=== PATIENT | male | born 1950 | race African-American/Black ===

== ENCOUNTER 2025-03-06 01:21 | Inpatient (IN) | payer OTHER ==
[~2025-03-06] VITALS: Ht 172.7 cm; Wt 77.6 kg
[2025-03-06 01:32] VITALS: O2SAT 98
[2025-03-06 03:27] LABS: BASOPHILS % 1.4 % (0.0-2.0); EOSINOPHILS % 1.3 % (0.0-5.0); HEMATOCRIT. 37.0 % (42.0-52.0); HEMOGLOBIN. 12.1 g/dL (14.0-18.0); LYMPHOCYTES % 26.1 % (20.0-50.0); MEAN PLATELET VOLUME 7.7 fl (7.4-10.4); MONOCYTES % 12.8 % (2.0-8.0); NEUTROPHILS % 58.4 % (40.0-76.0); PLATELET 249 x1000/uL (130-400); RED BLOOD CELL COUNT 3.94 mill/uL (4.7-6.1); RED CELL DISTRIBUTION WIDTH 14.5 % (11.6-14.6)
[2025-03-06 03:41] LABS: CREATININE 1.4 mg/dL (0.6-1.3); UREA NITROGEN BLOOD 28 mg/dL (9-23)
[2025-03-06] MEDS: QUETIAPINE FUMARATE 25MG TABLET PO SCH (04:14)
[2025-03-06 04:37] LABS: CLARITY URINE CLOUDY (CLEAR); COLOR URINE YELLOW (YELLOW); GLUCOSE URINE NEGATIVE (NEGATIVE); KETONES URINE NEGATIVE (NEGATIVE); LEUKOCYTE ESTERASE URINE 2+ (NEGATIVE); NITRITE URINE NEGATIVE (NEGATIVE); OCCULT BLOOD URINE 1+ (NEGATIVE); PH URINE 5.5 (4.5-8.0); PROTEIN URINE 2+ (NEGATIVE); SPECIFIC GRAVITY URINE 1.019 (1.005-1.030); UROBILINOGEN URINE 1.0 E.U./dL (0.2-1.0)
[2025-03-06 05:18] LABS: RBC URINE 0-2 /hpf (0-2); SQUAMOUS EPITHELIAL CELL URINE FEW /lpf (RARE/1+); WBC URINE 25-50 /hpf (0-2)
[2025-03-06 05:19] LABS: BACTERIA URINE TRACE
[2025-03-06] MEDS ORDERED: ACETAMINOPHEN 325MG TABLET PO PRN ×2 (06:15)
[2025-03-06] MEDS ORDERED: IPRATROPIUM/ALBUTEROL 0.5-3(2.5)MG/3ML NEB HHN PRN (06:15)
[2025-03-06] MEDS ORDERED: ONDANSETRON HCL 4MG/2ML INJ IV PRN (06:15)
[2025-03-06] MEDS ORDERED: CLONIDINE 0.1MG TABLET PO PRN (06:15)
[2025-03-06] MEDS ORDERED: CEFTRIAXONE 1GM/50ML 50 ML IV SCH (06:15)
[2025-03-06] MEDS ORDERED: GUAIFENESIN 200MG/10ML SUGAR FREE UDC PO PRN (06:15)
[2025-03-06] MEDS ORDERED: SODIUM CHLORIDE 0.9% 1,000 ML IV ONE (06:30)
[2025-03-06 12:00] VITALS: BP 133/70; PULSE 91; RESP 18; TEMP 36.3; O2SAT 97
[2025-03-06 15:13] VITALS: BP 137/85; PULSE 67; RESP 12; TEMP 36.0288
[2025-03-06 16:00] VITALS: BP 113/56; PULSE 98; RESP 19; TEMP 36.3; O2SAT 97
[2025-03-06 20:00] VITALS: BP 152/56; PULSE 64; RESP 18; TEMP 36.3; O2SAT 97
[2025-03-06] MEDS: FAMOTIDINE 20MG TABLET PO SCH (21:29)
[2025-03-07] MEDS: CEFTRIAXONE 1GM/50ML 50 ML IV SCH (06:14)
[2025-03-07 08:00] VITALS: BP 155/94; PULSE 60; RESP 17; TEMP 36.4; O2SAT 97
[2025-03-07 12:00] VITALS: BP 135/71; PULSE 60; RESP 17; TEMP 36.4; O2SAT 95
[2025-03-07 16:00] VITALS: BP 141/74; PULSE 64; RESP 16; TEMP 36.4; O2SAT 97
[2025-03-07 20:00] VITALS: BP 145/78; PULSE 60; RESP 17; TEMP 36.5; O2SAT 98
[2025-03-08] VITALS: BP 141/78; PULSE 66; RESP 17; TEMP 36.5; O2SAT 99
[2025-03-08 04:00] VITALS: BP 138/75; PULSE 62; RESP 17; TEMP 36.5; O2SAT 99
[2025-03-08 12:00] VITALS: BP 130/73; PULSE 60; RESP 18; TEMP 36.4; O2SAT 96
[2025-03-08 15:28] VITALS: BP 138/71; PULSE 63; RESP 17; TEMP 97.1
[2025-03-08 16:00] VITALS: BP 140/69; PULSE 63; RESP 18; TEMP 36.3; O2SAT 98
== END 2025-03-08 17:00 | disposition home or self-care (01) | DRG 699 ==
LOC: ER 01:21 → EDBEDREQ 04:11 → 6EST 04:40 → EDBEDREQTM 04:41 → EDBEDREQ 04:41 → ENRESERV 06:13
PROVIDERS: ADMIT Internal Medicine; ATTEND Internal Medicine
PROC: 0T2BX0Z Change Drainage Device in Bladder, External Approach (ICD-10-PCS; principal; 2025-03-06)
DX: T83.021A Displacement of indwelling urethral catheter, initial encounter (principal); N17.9 Acute kidney failure, unspecified; N39.0 Urinary tract infection, site not specified; F03.90 Unspecified dementia, unspecified severity, without behavioral disturbance, psychotic disturbance, mood disturbance, and anxiety; D64.9 Anemia, unspecified; Y83.8 Other surgical procedures as the cause of abnormal reaction of the patient, or of later complication, without mention of misadventure at the time of the procedure; Y92.89 Other specified places as the place of occurrence of the external cause; Z86.73 Personal history of transient ischemic attack (TIA), and cerebral infarction without residual deficits
CPT/HCPCS: 36415; 51702; 80048; 81003; 85025; 93970; 99285; A4606; J0696

== ENCOUNTER 2025-04-10 21:04 | Inpatient (IN) | payer OTHER ==
[~2025-04-10] VITALS: Ht 172.7 cm; Wt 73.0 kg
[2025-04-10 21:07] VITALS: O2SAT 94
[2025-04-10 21:55] LABS: BASOPHILS % 1.1 % (0.0-2.0); EOSINOPHILS % 1.4 % (0.0-5.0); HEMATOCRIT. 41.1 % (42.0-52.0); HEMOGLOBIN. 13.4 g/dL (14.0-18.0); LYMPHOCYTES % 22.1 % (20.0-50.0); MEAN PLATELET VOLUME 7.6 fl (7.4-10.4); MONOCYTES % 11.8 % (2.0-8.0); NEUTROPHILS % 63.6 % (40.0-76.0); PLATELET 287 x1000/uL (130-400); RED BLOOD CELL COUNT 4.36 mill/uL (4.7-6.1); RED CELL DISTRIBUTION WIDTH 14.1 % (11.6-14.6)
[2025-04-10 22:08] LABS: CREATININE 1.0 mg/dL (0.6-1.3); UREA NITROGEN BLOOD 28 mg/dL (9-23)
[2025-04-11 00:22] LABS: CLARITY URINE TURBID (CLEAR); COLOR URINE RED (YELLOW); GLUCOSE URINE NEGATIVE (NEGATIVE); KETONES URINE NEGATIVE (NEGATIVE); LEUKOCYTE ESTERASE URINE 2+ (NEGATIVE); NITRITE URINE NEGATIVE (NEGATIVE); OCCULT BLOOD URINE 3+ (NEGATIVE); PH URINE 5.5 (4.5-8.0); PROTEIN URINE 3+ (NEGATIVE); SPECIFIC GRAVITY URINE 1.028 (1.005-1.030); UROBILINOGEN URINE 1.0 E.U./dL (0.2-1.0)
[2025-04-11] MEDS ORDERED: MAGNESIUM/ALUMINUM HYDROXIDE/SIMETHICONE 30ML UDC PO PRN (01:30)
[2025-04-11] MEDS ORDERED: GUAIFENESIN 200MG/10ML SUGAR FREE UDC PO PRN (01:30)
[2025-04-11] MEDS ORDERED: ACETAMINOPHEN 325MG TABLET PO PRN ×2 (01:30)
[2025-04-11] MEDS ORDERED: DOCUSATE SODIUM 100MG CAPSULE PO PRN (01:30)
[2025-04-11] MEDS ORDERED: ONDANSETRON HCL 4MG/2ML INJ IV PRN (01:30)
[2025-04-11] MEDS ORDERED: CLONIDINE 0.1MG TABLET PO PRN (01:30)
[2025-04-11] MEDS ORDERED: IPRATROPIUM/ALBUTEROL 0.5-3(2.5)MG/3ML NEB HHN PRN (01:30)
[2025-04-11 01:58] VITALS: BP 133/75; PULSE 71; RESP 18; TEMP 36.418
[2025-04-11 02:00] LABS: BACTERIA URINE TRACE; RBC URINE 50-100 /hpf (0-2); SQUAMOUS EPITHELIAL CELL URINE FEW /lpf (RARE/1+)
[2025-04-11] MEDS: PIPERACILLIN/TAZO 3.375G/50ML 50 ML IV SCH (02:08)
[2025-04-11] MEDS: SODIUM CHLORIDE 0.9% 1,000 ML IV ONE (02:08)
[2025-04-11 08:00] VITALS: BP 117/64; PULSE 66; RESP 16; TEMP 36.3; O2SAT 97
[2025-04-11] MEDS: CEFTRIAXONE 1GM/50ML 50 ML IV SCH (08:59)
[2025-04-11] MEDS: FAMOTIDINE 20MG/2ML VIAL IV SCH (08:59)
[2025-04-11] MEDS ORDERED: PANTOPRAZOLE SODIUM 40 MG/VIAL IV SCH (09:00)
[2025-04-11 12:00] VITALS: BP 131/56; PULSE 84; RESP 18; TEMP 36.5; O2SAT 96
[2025-04-11] MEDS: SODIUM CHLORIDE 0.9% 500 ML IV ONE (14:41)
[2025-04-11] MEDS: ASPIRIN 81MG TABLET PO SCH (18:56)
[2025-04-11] MEDS: AMLODIPINE 5MG TABLET PO SCH (18:56)
[2025-04-11 20:00] VITALS: BP 116/59; PULSE 69; RESP 17; TEMP 36.6; O2SAT 98
[2025-04-11] MEDS: ATORVASTATIN CALCIUM 40MG TABLET PO SCH (20:31)
[2025-04-11] MEDS: TRAZODONE HCL 50MG TABLET PO SCH (20:31)
[2025-04-11] MEDS: ENOXAPARIN 40MG/0.4ML SYR SUBCUT SCH (20:33)
[2025-04-11] MEDS: TRIAMCINOLONE ACETONIDE 0.1 % OINT 15GM TOP SCH (20:33)
[2025-04-12] VITALS: BP 122/55; PULSE 60; RESP 17; TEMP 36.6; O2SAT 96
[2025-04-12 04:00] VITALS: BP 123/58; PULSE 57; RESP 17; TEMP 36.5; O2SAT 97
[2025-04-12 07:43] LABS: *AMPHETAMINES SCREEN URINE NEGATIVE (NEGATIVE); *BENZODIAZEPINES SCREEN URINE NEGATIVE (NEGATIVE)
[2025-04-12 07:44] LABS: *BARBITURATES SCREEN URINE NEGATIVE (NEGATIVE); *COCAINE SCREEN URINE NEGATIVE (NEGATIVE); CANNABINOID URINE SCREEN NEGATIVE (NEGATIVE); ECSTASY MDMA SCREEN URINE NEGATIVE (NEGATIVE); METHADONE URINE SCREEN NEGATIVE (NEGATIVE); OPIATES URINE SCREEN NEGATIVE (NEGATIVE); PHENCYCLIDINE URINE SCREEN NEGATIVE (NEGATIVE)
[2025-04-12 08:00] VITALS: BP 117/81; PULSE 72; RESP 17; TEMP 36.4; O2SAT 100
[2025-04-12] MEDS ORDERED: SULF1TAB48 MT (09:48)
[2025-04-12] MEDS ORDERED: ASPI-1160 PO (09:51)
[2025-04-12] MEDS ORDERED: LIP40 PO (09:51)
[2025-04-12] MEDS ORDERED: AMLO5TAB88 PO (09:51)
[2025-04-12] MEDS ORDERED: TRAZ-251 PO (09:52)
[2025-04-12 12:07] VITALS: BP 115/51; PULSE 72; RESP 14; TEMP 36.5; O2SAT 98
[2025-04-12 16:00] VITALS: BP 136/70; PULSE 69; RESP 16; TEMP 36.5; O2SAT 99
[2025-04-12] MEDS: SODIUM CHLORIDE 0.9% 1,000 ML IV SCH (17:22)
[2025-04-12 17:41] LABS: BASOPHILS % 2.5 % (0.0-2.0); EOSINOPHILS % 2.6 % (0.0-5.0); HEMATOCRIT. 35.5 % (42.0-52.0); HEMOGLOBIN. 11.7 g/dL (14.0-18.0); LYMPHOCYTES % 40.8 % (20.0-50.0); MEAN PLATELET VOLUME 8.0 fl (7.4-10.4); MONOCYTES % 10.1 % (2.0-8.0); NEUTROPHILS % 44.0 % (40.0-76.0); PLATELET 269 x1000/uL (130-400); RED BLOOD CELL COUNT 3.78 mill/uL (4.7-6.1); RED CELL DISTRIBUTION WIDTH 13.9 % (11.6-14.6)
[2025-04-12 17:52] LABS: CREATININE 0.8 mg/dL (0.6-1.3); TRIGLYCERIDE 65 mg/dL (0-150); UREA NITROGEN BLOOD 22 mg/dL (9-23)
[2025-04-12 17:53] LABS: LDL CHOLESTEROL 63 mg/dL (5-100)
[2025-04-12 17:54] LABS: ASPARTATE AMINOTRANSFERASE 36 IU/L (<34); BILIRUBIN DIRECT 0.1 mg/dL (<=3.0); PHOSPHORUS 3.2 mg/dL (2.5-4.9)
[2025-04-12 17:55] LABS: BILIRUBIN TOTAL 0.4 mg/dL (0.1-1.0); PROTEIN TOTAL 6.4 g/dL (6.0-8.3)
[2025-04-12 17:56] LABS: T4 FREE 1.14 ng/dL (0.89-1.76)
[2025-04-12 20:00] VITALS: BP 129/60; PULSE 60; RESP 18; TEMP 36.8; O2SAT 97
[2025-04-13] VITALS: BP 132/72; PULSE 62; RESP 16; TEMP 36.7; O2SAT 98
[2025-04-13 04:00] VITALS: BP 148/84; PULSE 64; RESP 16; TEMP 36.6; O2SAT 97
[2025-04-13 08:00] VITALS: BP 135/67; PULSE 68; RESP 17; TEMP 36.2; O2SAT 97
[2025-04-13 08:35] LABS: PLATELET 225 x1000/uL (130-400); RED BLOOD CELL COUNT 3.86 mill/uL (4.7-6.1); RED CELL DISTRIBUTION WIDTH 13.9 % (11.6-14.6)
[2025-04-13 08:47] LABS: CREATININE 0.8 mg/dL (0.6-1.3)
[2025-04-13 08:48] LABS: UREA NITROGEN BLOOD 16 mg/dL (9-23)
[2025-04-13 08:50] LABS: PHOSPHORUS 2.9 mg/dL (2.5-4.9)
[2025-04-13] MEDS: MAGNESIUM 2 G PREMIX 50 ML IV SCH (10:30)
[2025-04-13 12:00] VITALS: BP 136/60; PULSE 84; RESP 16; TEMP 36.1; O2SAT 97
[2025-04-13] MEDS ORDERED: LIP40 PO (12:09)
[2025-04-13] MEDS ORDERED: ASPI-1160 PO (12:09)
[2025-04-13] MEDS ORDERED: TRAZ-251 PO (12:09)
[2025-04-13] MEDS ORDERED: AMLO5TAB88 PO (12:09)
[2025-04-13] MEDS ORDERED: SULF1TAB48 MT (12:09)
[2025-04-13 12:35] VITALS: BP 136/60; PULSE 84; RESP 16; TEMP 96.9
== END 2025-04-13 13:58 | disposition home or self-care (01) | DRG 698 ==
LOC: ER 21:04 → 8EST 22:44 → EDBEDREQTM 22:59 → EDBEDREQ 22:59 → ENRESERV 23:23
PROVIDERS: ADMIT Internal Medicine; ATTEND Internal Medicine
DX: T83.021A Displacement of indwelling urethral catheter, initial encounter (principal); G93.41 Metabolic encephalopathy; F03.918 Unspecified dementia, unspecified severity, with other behavioral disturbance; B36.9 Superficial mycosis, unspecified; I25.10 Atherosclerotic heart disease of native coronary artery without angina pectoris; N39.0 Urinary tract infection, site not specified; I10 Essential (primary) hypertension; Y73.8 Miscellaneous gastroenterology and urology devices associated with adverse incidents, not elsewhere classified; E78.5 Hyperlipidemia, unspecified; Z87.440 Personal history of urinary (tract) infections; G47.00 Insomnia, unspecified; I25.2 Old myocardial infarction; Z86.73 Personal history of transient ischemic attack (TIA), and cerebral infarction without residual deficits; Z85.07 Personal history of malignant neoplasm of pancreas; Z85.46 Personal history of malignant neoplasm of prostate; Z79.899 Other long term (current) drug therapy
CPT/HCPCS: 36415; 76770; 80048; 80061; 80076; 80305; 81003; 83036; 83735; 84100; 84439; 84443; 85025; 85027; 93970; 99285; J0696; J1308; J1650; J2543; J7030

== ENCOUNTER 2025-04-20 19:46 | Emergency (ER) | payer OTHER ==
[~2025-04-20] VITALS: Ht 175.3 cm; Wt 68.0 kg
[~2025-04-20 19:46] MED LIST: AMLO5TAB88 PO; ASPI-1160 PO; LIP40 PO; SULF1TAB48 MT; TRAZ-251 PO
[2025-04-20 19:56] VITALS: O2SAT 99
[2025-04-20 20:47] LABS: BASOPHILS % 1.1 % (0.0-2.0); EOSINOPHILS % 2.7 % (0.0-5.0); HEMATOCRIT. 37.5 % (42.0-52.0); HEMOGLOBIN. 12.2 g/dL (14.0-18.0); LYMPHOCYTES % 28.8 % (20.0-50.0); MEAN PLATELET VOLUME 7.7 fl (7.4-10.4); MONOCYTES % 14.5 % (2.0-8.0); NEUTROPHILS % 52.9 % (40.0-76.0); PLATELET 218 x1000/uL (130-400); RED BLOOD CELL COUNT 3.97 mill/uL (4.7-6.1); RED CELL DISTRIBUTION WIDTH 14.3 % (11.6-14.6)
[2025-04-20 21:03] LABS: CREATININE 0.9 mg/dL (0.6-1.3); UREA NITROGEN BLOOD 24 mg/dL (9-23)
[2025-04-20 21:40] LABS: CLARITY URINE CLEAR (CLEAR); COLOR URINE YELLOW (YELLOW); GLUCOSE URINE NEGATIVE (NEGATIVE); KETONES URINE NEGATIVE (NEGATIVE); LEUKOCYTE ESTERASE URINE 1+ (NEGATIVE); NITRITE URINE NEGATIVE (NEGATIVE); OCCULT BLOOD URINE 3+ (NEGATIVE); PH URINE 7.0 (4.5-8.0); PROTEIN URINE 2+ (NEGATIVE); SPECIFIC GRAVITY URINE 1.021 (1.005-1.030); UROBILINOGEN URINE 1.0 E.U./dL (0.2-1.0)
[2025-04-20 22:16] LABS: BACTERIA URINE TRACE
[2025-04-20 22:17] LABS: RBC URINE 25-50 /hpf (0-2); SQUAMOUS EPITHELIAL CELL URINE FEW /lpf (RARE/1+)
[2025-04-20 23:30] VITALS: TEMP 36.3
[2025-04-20] MEDS ORDERED: CEFP200T13 MT (23:51)
[2025-04-21 00:30] VITALS: BP 138/58; PULSE 66; RESP 15; O2SAT 95
== END 2025-04-21 00:43 | disposition home or self-care (01) ==
LOC: ER 19:46 → CMPBEDREQ 04-21 08:14
DX: T83.021A Displacement of indwelling urethral catheter, initial encounter (principal); T83.091A Other mechanical complication of indwelling urethral catheter, initial encounter; Z79.82 Long term (current) use of aspirin; Z79.899 Other long term (current) drug therapy; Z86.73 Personal history of transient ischemic attack (TIA), and cerebral infarction without residual deficits; Y73.8 Miscellaneous gastroenterology and urology devices associated with adverse incidents, not elsewhere classified
CPT/HCPCS: 36415; 51702; 80048; 81003; 85025; 99285

== ENCOUNTER 2025-04-30 21:19 | Inpatient (IN) | payer OTHER ==
[~2025-04-30] VITALS: Ht 182.9 cm; Wt 65.3 kg
[~2025-04-30 21:19] MED LIST changes: +CEFP200T13 MT
[2025-04-30 21:24] VITALS: O2SAT 99
[2025-04-30] MEDS: SODIUM CHLORIDE 0.9% (SEPSIS BOLUS) IV ONE (22:45)
[2025-04-30] MEDS: CEFTRIAXONE 1GM/50ML 50 ML IV ONE (22:45)
[2025-04-30 23:03] LABS: BASOPHILS % 0.7 % (0.0-2.0); EOSINOPHILS % 0.8 % (0.0-5.0); HEMATOCRIT. 43.8 % (42.0-52.0); HEMOGLOBIN. 14.1 g/dL (14.0-18.0); LYMPHOCYTES % 16.6 % (20.0-50.0); MEAN PLATELET VOLUME 7.8 fl (7.4-10.4); MONOCYTES % 11.8 % (2.0-8.0); NEUTROPHILS % 70.1 % (40.0-76.0); PLATELET 255 x1000/uL (130-400); RED BLOOD CELL COUNT 4.60 mill/uL (4.7-6.1); RED CELL DISTRIBUTION WIDTH 14.8 % (11.6-14.6)
[2025-04-30 23:08] LABS: CLARITY URINE CLOUDY (CLEAR); COLOR URINE YELLOW (YELLOW); GLUCOSE URINE NEGATIVE (NEGATIVE); KETONES URINE NEGATIVE (NEGATIVE); LEUKOCYTE ESTERASE URINE 2+ (NEGATIVE); NITRITE URINE POSITIVE (NEGATIVE); OCCULT BLOOD URINE 2+ (NEGATIVE); PH URINE 5.0 (4.5-8.0); PROTEIN URINE 2+ (NEGATIVE); SPECIFIC GRAVITY URINE 1.028 (1.005-1.030); UROBILINOGEN URINE 1.0 E.U./dL (0.2-1.0)
[2025-04-30 23:19] LABS: CREATININE 1.1 mg/dL (0.6-1.3); UREA NITROGEN BLOOD 25 mg/dL (9-23)
[2025-04-30 23:20] LABS: INR 1.0; PROTEIN TOTAL 7.4 g/dL (6.0-8.3); TROPONIN I HIGH SENSITIVITY 9 ng/L (3.0-53)
[2025-04-30 23:21] LABS: ASPARTATE AMINOTRANSFERASE 77 IU/L (<34); BILIRUBIN DIRECT 0.1 mg/dL (<=3.0); BILIRUBIN TOTAL 0.4 mg/dL (0.1-1.0)
[2025-04-30 23:25] LABS: BACTERIA URINE 4+; SQUAMOUS EPITHELIAL CELL URINE FEW /lpf (RARE/1+)
[2025-04-30 23:27] LABS: RBC URINE 25-50 /hpf (0-2); WBC URINE TNTC /hpf (0-2)
[2025-05-01 04:15] VITALS: BP 145/87; PULSE 56; RESP 18; TEMP 36.1; O2SAT 98
[2025-05-01 07:00] VITALS: BP 154/79; PULSE 62; RESP 18; TEMP 35.7508
[2025-05-01 08:00] VITALS: BP 143/71; PULSE 65; RESP 19; TEMP 36.3; O2SAT 97
[2025-05-01] MEDS ORDERED: GUAIFENESIN 200MG/10ML SUGAR FREE UDC PO PRN (09:30)
[2025-05-01] MEDS ORDERED: ONDANSETRON HCL 4MG/2ML INJ IV PRN (09:30)
[2025-05-01] MEDS ORDERED: CLONIDINE 0.1MG TABLET PO PRN (09:30)
[2025-05-01] MEDS ORDERED: DOCUSATE SODIUM 100MG CAPSULE PO PRN (09:30)
[2025-05-01] MEDS ORDERED: MAGNESIUM/ALUMINUM HYDROXIDE/SIMETHICONE 30ML UDC PO PRN (09:30)
[2025-05-01] MEDS: AMLODIPINE 5MG TABLET PO SCH (09:30)
[2025-05-01] MEDS ORDERED: ACETAMINOPHEN 325MG TABLET PO PRN ×2 (09:30)
[2025-05-01] MEDS ORDERED: IPRATROPIUM/ALBUTEROL 0.5-3(2.5)MG/3ML NEB HHN PRN (09:30)
[2025-05-01 16:00] VITALS: BP 120/75; PULSE 68; RESP 18; TEMP 36.4; O2SAT 96
[2025-05-01] MEDS: ENOXAPARIN 40MG/0.4ML SYR SUBCUT SCH (17:50)
[2025-05-01 20:00] VITALS: BP 137/62; PULSE 80; RESP 18; TEMP 36.4; O2SAT 95
[2025-05-01] MEDS: ATORVASTATIN CALCIUM 40MG TABLET PO SCH (21:59)
[2025-05-01] MEDS: CEFTRIAXONE 2GM/50ML 50 ML IV SCH (21:59)
[2025-05-02] VITALS: BP 129/76; PULSE 80; RESP 18; TEMP 36.3; O2SAT 97
[2025-05-02 04:00] VITALS: BP 113/60; PULSE 76; RESP 18; TEMP 35.8; O2SAT 95
[2025-05-02] MEDS: ASPIRIN 81MG EC TABLET PO SCH (09:00)
[2025-05-02] MEDS: PANTOPRAZOLE SODIUM 40 MG/VIAL IV SCH (09:55)
[2025-05-02] MEDS ORDERED: SULF1TAB48 MT (10:18)
[2025-05-02 16:00] VITALS: BP 134/67; PULSE 82; RESP 18; TEMP 36.3; O2SAT 96
[2025-05-03 08:00] VITALS: BP 122/59; PULSE 64; RESP 18; TEMP 36.1; O2SAT 100
[2025-05-03] MEDS ORDERED: LEVO750T68 MT (12:52)
[2025-05-03] MEDS ORDERED: NITR-87 MT (12:52)
[2025-05-03 15:29] VITALS: BP 122/59; PULSE 64; RESP 20; TEMP 97
[2025-05-03 20:03] VITALS: BP 113/77; PULSE 88; RESP 18; TEMP 36.2; O2SAT 95
[2025-05-03] MEDS: NITROFURANTOIN 100MG M/M CAPSULE PO SCH (21:10)
[2025-05-03] MEDS: PIPERACILLIN/TAZO 3.375G/50ML 50 ML IV SCH (21:10)
[2025-05-04] VITALS: BP 132/77; PULSE 92; RESP 18; TEMP 36.2; O2SAT 95
[2025-05-04 07:48] LABS: CREATININE 1.0 mg/dL (0.6-1.3); UREA NITROGEN BLOOD 15 mg/dL (9-23)
[2025-05-04 07:51] LABS: HEMATOCRIT. 37.6 % (42.0-52.0); HEMOGLOBIN. 12.4 g/dL (14.0-18.0); MEAN PLATELET VOLUME 8.5 fl (7.4-10.4); PLATELET 234 x1000/uL (130-400); RED BLOOD CELL COUNT 4.02 mill/uL (4.7-6.1); RED CELL DISTRIBUTION WIDTH 14.1 % (11.6-14.6)
[2025-05-04 08:00] VITALS: BP 121/62; PULSE 49; RESP 16; TEMP 35.6; O2SAT 87
[2025-05-04] MEDS: TRIAMCINOLONE ACETONIDE 0.1 % OINT 15GM TOP SCH (09:04)
[2025-05-04 12:00] VITALS: BP 118/57; PULSE 60; RESP 16; TEMP 35.7; O2SAT 95
[2025-05-04 16:00] VITALS: BP 94/58; PULSE 66; RESP 18; TEMP 35.4; O2SAT 97
[2025-05-04 20:06] LABS: EOSINOPHILS % MANUAL 3.0 % (0.0-5.0); LYMPHOCYTES % MANUAL 40.0 % (20.0-50.0); MONOCYTES % MANUAL 13.0 % (2.0-8.0); NEUTROPHILS % MANUAL 44.0 % (45.0-75.0)
[2025-05-04 20:07] LABS: PLATELET ESTIMATE NORMAL
[2025-05-05] MEDS ORDERED: FAMOTIDINE 20MG/2ML VIAL IV SCH (09:00)
== END 2025-05-04 21:37 | disposition home or self-care (01) | DRG 698 ==
LOC: ER 21:19 → 6EST 23:41 → EDBEDREQ 23:42 → EDBEDREQTM 23:42 → EDBEDREQSVC 23:42 → ENRESERV 05-01 03:45
PROVIDERS: ADMIT Internal Medicine; ATTEND Internal Medicine
DX: T83.518A Infection and inflammatory reaction due to other urinary catheter, initial encounter (principal); G92.8 Other toxic encephalopathy; L89.156 Pressure-induced deep tissue damage of sacral region; N39.0 Urinary tract infection, site not specified; F03.90 Unspecified dementia, unspecified severity, without behavioral disturbance, psychotic disturbance, mood disturbance, and anxiety; I10 Essential (primary) hypertension; I69.398 Other sequelae of cerebral infarction; N31.9 Neuromuscular dysfunction of bladder, unspecified; I25.10 Atherosclerotic heart disease of native coronary artery without angina pectoris; R73.9 Hyperglycemia, unspecified; E78.5 Hyperlipidemia, unspecified; R21 Rash and other nonspecific skin eruption; Z74.01 Bed confinement status; Y73.8 Miscellaneous gastroenterology and urology devices associated with adverse incidents, not elsewhere classified; Z85.46 Personal history of malignant neoplasm of prostate; Z79.899 Other long term (current) drug therapy; Y92.89 Other specified places as the place of occurrence of the external cause
CPT/HCPCS: 36415; 71045; 80048; 80076; 80320; 81003; 83036; 83605; 83735; 84145; 84484; 85025; 87077; 87186; 93005; 99291; A4606; J0696; J1650; J2470; J2543; J7030; G0480

== ENCOUNTER 2025-05-08 09:42 | Inpatient (IN) | payer OTHER ==
[~2025-05-08] VITALS: Ht 175.3 cm; Wt 69.4 kg
[~2025-05-08 09:42] MED LIST changes: -CEFP200T13 MT; +LEVO750T68 MT; +NITR-87 MT; -SULF1TAB48 MT
[2025-05-08 09:46] VITALS: O2SAT 98
[2025-05-08] MEDS: SODIUM CHLORIDE 0.9% (SEPSIS BOLUS) IV ONE (10:11)
[2025-05-08 10:21] LABS: BASOPHILS % 0.7 % (0.0-2.0); EOSINOPHILS % 0.1 % (0.0-5.0); HEMATOCRIT. 40.4 % (42.0-52.0); HEMOGLOBIN. 13.3 g/dL (14.0-18.0); LYMPHOCYTES % 20.7 % (20.0-50.0); MEAN PLATELET VOLUME 7.9 fl (7.4-10.4); MONOCYTES % 14.2 % (2.0-8.0); NEUTROPHILS % 64.3 % (40.0-76.0); PLATELET 261 x1000/uL (130-400); RED BLOOD CELL COUNT 4.30 mill/uL (4.7-6.1); RED CELL DISTRIBUTION WIDTH 14.8 % (11.6-14.6)
[2025-05-08 10:37] LABS: CREATININE 1.1 mg/dL (0.6-1.3); UREA NITROGEN BLOOD 16 mg/dL (9-23)
[2025-05-08 10:38] LABS: TROPONIN I HIGH SENSITIVITY 12 ng/L (3.0-53)
[2025-05-08 10:39] LABS: ASPARTATE AMINOTRANSFERASE 88 IU/L (<34); BILIRUBIN DIRECT 0.1 mg/dL (<=3.0); BILIRUBIN TOTAL 0.6 mg/dL (0.1-1.0); PROTEIN TOTAL 7.3 g/dL (6.0-8.3)
[2025-05-08] MEDS: HALOPERIDOL LACTATE 5MG/ML VIAL IM ONE (11:14)
[2025-05-08 11:48] LABS: CLARITY URINE TURBID (CLEAR); COLOR URINE DARK YELLOW (YELLOW); GLUCOSE URINE NEGATIVE (NEGATIVE); KETONES URINE NEGATIVE (NEGATIVE); LEUKOCYTE ESTERASE URINE 3+ (NEGATIVE); NITRITE URINE POSITIVE (NEGATIVE); OCCULT BLOOD URINE 3+ (NEGATIVE); PH URINE 6.5 (4.5-8.0); PROTEIN URINE 2+ (NEGATIVE); SPECIFIC GRAVITY URINE 1.021 (1.005-1.030); UROBILINOGEN URINE 1.0 E.U./dL (0.2-1.0)
[2025-05-08] MEDS: PIPERACILLIN/TAZO 3.375G/50ML 50 ML IV ONE (12:07)
[2025-05-08] MEDS: VANCOMYCIN 1G PREMIX 200 ML IV ONE (12:15)
[2025-05-08 12:53] LABS: WBC URINE TNTC /hpf (0-2)
[2025-05-08 12:56] LABS: BACTERIA URINE 4+
[2025-05-08 12:58] LABS: RBC URINE 25-50 /hpf (0-2)
[2025-05-08 12:59] LABS: CALCIUM OXALATE CRYSTALS URINE 1+ /lpf; SQUAMOUS EPITHELIAL CELL URINE NONE SEEN /lpf (RARE/1+)
[2025-05-08] MEDS ORDERED: CLONIDINE 0.1MG TABLET PO PRN (14:15)
[2025-05-08] MEDS ORDERED: DEXTROSE 50% WATER 50ML SYRINGE IV PRN (14:15)
[2025-05-08] MEDS ORDERED: DOCUSATE SODIUM 100MG CAPSULE PO PRN (14:15)
[2025-05-08] MEDS ORDERED: GUAIFENESIN 200MG/10ML SUGAR FREE UDC PO PRN (14:15)
[2025-05-08] MEDS ORDERED: IPRATROPIUM/ALBUTEROL 0.5-3(2.5)MG/3ML NEB HHN PRN (14:15)
[2025-05-08] MEDS ORDERED: ACETAMINOPHEN 325MG TABLET PO PRN ×2 (14:15)
[2025-05-08] MEDS ORDERED: ONDANSETRON HCL 4MG/2ML INJ IV PRN (14:15)
[2025-05-08] MEDS: SODIUM CHLORIDE 0.45% 1,000 ML IV SCH (14:50)
[2025-05-08 14:52] LABS: TRIGLYCERIDE 94.0 mg/dL (0-150)
[2025-05-08 14:52] LABS: INR 1.0
[2025-05-08 14:53] LABS: LDL CHOLESTEROL 51.0 mg/dL (5-100)
[2025-05-08] MEDS: SODIUM ZIRCONIUM CYCLOSILICATE 10GM/PACKET PO SCH (15:00)
[2025-05-08 16:00] VITALS: BP 148/75; PULSE 68; RESP 19; TEMP 36.6; O2SAT 95
[2025-05-08] MEDS: CEFEPIME 2GM/100ML 100 ML IV SCH (17:00)
[2025-05-08 17:18] VITALS: BP 148/75; PULSE 68; RESP 19; TEMP 36.5848
[2025-05-08] MEDS: NITROFURANTOIN 100MG M/M CAPSULE PO SCH (17:35)
[2025-05-08] MEDS: BLOOD SUGAR DIAGNOSTIC STRIP TEST SCH (18:00)
[2025-05-08 20:00] VITALS: BP 147/71; PULSE 66; RESP 18; TEMP 35.8; O2SAT 100
[2025-05-08] MEDS: ENOXAPARIN 40MG/0.4ML SYR SUBCUT SCH (21:48)
[2025-05-09] VITALS: BP 137/54; PULSE 70; RESP 20; TEMP 36.4; O2SAT 99
[2025-05-09 04:00] VITALS: BP 154/64; PULSE 78; RESP 19; TEMP 36.5; O2SAT 99
[2025-05-09] MEDS: CEFEPIME 2GM/100ML 100 ML IV SCH (04:47)
[2025-05-09] MEDS: SODIUM ZIRCONIUM CYCLOSILICATE 10GM/PACKET PO SCH (06:18)
[2025-05-09 07:34] LABS: BASOPHILS % 0.9 % (0.0-2.0); EOSINOPHILS % 0.6 % (0.0-5.0); HEMATOCRIT. 32.9 % (42.0-52.0); HEMOGLOBIN. 10.9 g/dL (14.0-18.0); LYMPHOCYTES % 14.4 % (20.0-50.0); MEAN PLATELET VOLUME 7.9 fl (7.4-10.4); MONOCYTES % 13.5 % (2.0-8.0); NEUTROPHILS % 70.6 % (40.0-76.0); PLATELET 215 x1000/uL (130-400); RED BLOOD CELL COUNT 3.47 mill/uL (4.7-6.1); RED CELL DISTRIBUTION WIDTH 14.5 % (11.6-14.6)
[2025-05-09 08:19] LABS: CREATININE 0.7 mg/dL (0.6-1.3); UREA NITROGEN BLOOD 19 mg/dL (9-23)
[2025-05-09] MEDS: PANTOPRAZOLE 40MG DR TABLET PO SCH (09:39)
[2025-05-09] MEDS: SODIUM CHLORIDE 0.9% 1,000 ML IV SCH (12:55)
[2025-05-09 16:00] VITALS: BP 138/86; PULSE 85; RESP 22; TEMP 36.3; O2SAT 100
[2025-05-09] MEDS: AMLODIPINE 5MG TABLET PO SCH (18:33)
[2025-05-09 20:00] VITALS: BP 130/71; PULSE 56; RESP 20; TEMP 36.5; O2SAT 96
[2025-05-10] VITALS: BP 128/67; PULSE 60; RESP 19; TEMP 36.4; O2SAT 96
[2025-05-10 04:00] VITALS: BP 109/63; PULSE 64; RESP 18; TEMP 36.2; O2SAT 98
[2025-05-10 08:00] VITALS: BP 121/83; PULSE 64; RESP 20; TEMP 37.1; O2SAT 95
[2025-05-10] MEDS: NYSTATIN/TRIAMCIN CREAM 15GM TOP SCH (10:37)
[2025-05-10 12:00] VITALS: BP 118/79; PULSE 71; RESP 20; TEMP 36.9; O2SAT 95
[2025-05-10 13:48] LABS: BASOPHILS % 1.0 % (0.0-2.0); EOSINOPHILS % 2.9 % (0.0-5.0); HEMATOCRIT. 32.4 % (42.0-52.0); HEMOGLOBIN. 10.7 g/dL (14.0-18.0); LYMPHOCYTES % 26.0 % (20.0-50.0); MEAN PLATELET VOLUME 7.8 fl (7.4-10.4); MONOCYTES % 14.8 % (2.0-8.0); NEUTROPHILS % 55.3 % (40.0-76.0); PLATELET 212 x1000/uL (130-400); RED BLOOD CELL COUNT 3.42 mill/uL (4.7-6.1); RED CELL DISTRIBUTION WIDTH 14.3 % (11.6-14.6)
[2025-05-10 13:55] LABS: CREATININE 0.7 mg/dL (0.6-1.3)
[2025-05-10 13:56] LABS: PROTEIN TOTAL 5.8 g/dL (6.0-8.3); UREA NITROGEN BLOOD 13 mg/dL (9-23)
[2025-05-10 13:57] LABS: ASPARTATE AMINOTRANSFERASE 96 IU/L (<34)
[2025-05-10 13:58] LABS: BILIRUBIN DIRECT 0.3 mg/dL (<=3.0); BILIRUBIN TOTAL 0.8 mg/dL (0.1-1.0); PHOSPHORUS 2.5 mg/dL (2.5-4.9)
[2025-05-10 16:00] VITALS: BP 118/79; PULSE 61; RESP 18; TEMP 36.3; O2SAT 98
[2025-05-10 20:00] VITALS: BP 119/57; PULSE 58; RESP 19; TEMP 36.6; O2SAT 99
[2025-05-11 08:00] VITALS: BP 139/73; PULSE 62; RESP 18; TEMP 36.6; O2SAT 98
[2025-05-11 12:00] VITALS: BP 139/73; PULSE 62; RESP 18; TEMP 36.6; O2SAT 98
[2025-05-11 16:00] VITALS: BP_SYST 128; BP_SYST 138; BP_DIAS 66; BP_DIAS 68; PULSE 67; PULSE 68; RESP 16; RESP 18; TEMP 36.4; TEMP 36.8; O2SAT 100; O2SAT 99
[2025-05-11 20:00] VITALS: BP 137/59; PULSE 60; RESP 18; TEMP 36.6; O2SAT 96
[2025-05-12] VITALS: BP 117/76; PULSE 67; RESP 20; TEMP 36.5; O2SAT 98
[2025-05-12 04:00] VITALS: BP 114/78; PULSE 69; RESP 16; TEMP 36.4; O2SAT 98
[2025-05-12 08:00] VITALS: BP 152/58; PULSE 58; RESP 18; TEMP 36.6; O2SAT 96
[2025-05-12 12:00] VITALS: BP 138/86; PULSE 60; RESP 18; TEMP 36.8; O2SAT 100
[2025-05-12 16:00] VITALS: BP 127/82; PULSE 60; RESP 18; TEMP 36.8; O2SAT 100
[2025-05-12 20:00] VITALS: BP 100/77; PULSE 59; RESP 18; TEMP 36.6; O2SAT 96
[2025-05-13] VITALS (8 sets, daily range): BP systolic 110–138; BP diastolic 50–78; PULSE 64–74; RESP 17–19; TEMP 36.4–37.5; O2SAT 95–100
[2025-05-13] MEDS ORDERED: IPRATROPIUM/ALBUTEROL 0.5-3(2.5)MG/3ML NEB HHN PRN (12:45)
[2025-05-13] MEDS ORDERED: METH1TAB69 MT (15:32)
[2025-05-13] MEDS ORDERED: LEVO750T68 MT (15:32)
[2025-05-13 22:03] LABS: BASOPHILS % 0.4 % (0.0-2.0); EOSINOPHILS % 3.6 % (0.0-5.0); HEMATOCRIT. 32.1 % (42.0-52.0); HEMOGLOBIN. 10.9 g/dL (14.0-18.0); LYMPHOCYTES % 39.1 % (20.0-50.0); MEAN PLATELET VOLUME 7.9 fl (7.4-10.4); MONOCYTES % 13.3 % (2.0-8.0); NEUTROPHILS % 43.6 % (40.0-76.0); PLATELET 237 x1000/uL (130-400); RED BLOOD CELL COUNT 3.45 mill/uL (4.7-6.1); RED CELL DISTRIBUTION WIDTH 14.3 % (11.6-14.6)
[2025-05-13 22:33] LABS: CREATININE 0.7 mg/dL (0.6-1.3); UREA NITROGEN BLOOD 7 mg/dL (9-23)
[2025-05-14] VITALS: BP 104/59; PULSE 70; RESP 17; TEMP 37.4; O2SAT 95
[2025-05-14] MEDS: SODIUM CHLORIDE 0.9% 500 ML IV ONE (00:05)
[2025-05-14 04:00] VITALS: BP 122/70; PULSE 66; RESP 17; TEMP 37.7; O2SAT 94
[2025-05-14 08:37] VITALS: BP 170/76; PULSE 90; RESP 18; TEMP 36.6; O2SAT 100
[2025-05-15] MEDS ORDERED: FAMOTIDINE 20MG TABLET PO SCH (06:40)
== END 2025-05-14 11:25 | disposition home or self-care (01) | DRG 689 ==
LOC: ER 09:42 → 7WST 12:07 → EDBEDREQTM 12:09 → EDBEDREQ 12:09 → 7EST 05-13 00:25
PROVIDERS: ADMIT Internal Medicine; ATTEND Internal Medicine
DX: N39.0 Urinary tract infection, site not specified (principal); G93.41 Metabolic encephalopathy; E87.20 Acidosis, unspecified; E11.9 Type 2 diabetes mellitus without complications; E78.5 Hyperlipidemia, unspecified; B35.4 Tinea corporis; F03.90 Unspecified dementia, unspecified severity, without behavioral disturbance, psychotic disturbance, mood disturbance, and anxiety; I10 Essential (primary) hypertension; I69.30 Unspecified sequelae of cerebral infarction; Z16.21 Resistance to vancomycin; L30.9 Dermatitis, unspecified; E87.5 Hyperkalemia; S30.812A Abrasion of penis, initial encounter; I25.10 Atherosclerotic heart disease of native coronary artery without angina pectoris; Z74.01 Bed confinement status; Z85.46 Personal history of malignant neoplasm of prostate; Z87.440 Personal history of urinary (tract) infections; Z79.899 Other long term (current) drug therapy; X58.XXXA Exposure to other specified factors, initial encounter; Y93.89 Activity, other specified; Y92.89 Other specified places as the place of occurrence of the external cause; Y99.8 Other external cause status
CPT/HCPCS: 36415; 71045; 80048; 80061; 80076; 81003; 82962; 83036; 83605; 83735; 84100; 84145; 84484; 85025; 87077; 87186; 93005; 96365; 96372; 97162; 99291; A4606; J0692; J1630; J1650; J2543; J3373; J7030